=== PATIENT | male | born 1955 ===

== ENCOUNTER 2022-02-20 19:24 | Inpatient (IN) | payer OTHER, MEDICARE ==
[~2022-02-20] VITALS: Ht 185.4 cm; Wt 139.4 kg
--- NOTE | 2022-02-21 18:38 | NUR ---
ADMIT PT ARRIVED TO ICU 8 VIA EMS. REPORT RECEIVED FROM DARCI AT [facility]. PT IN 4 POINT RESTRAINTS UPON ARRIVAL, SNORING, NOT FOLLOWING COMMANDS, 15L NEBULIZER MASK ON PT. PT REMOVED FROM RESTRAINTS AND MOVED ONTO ICU BED. PT'S EMS LINENS WERE SATURATED WITH URINE. PT'S SKIN CLEANSED, HOOKED UP TO MONITORS. SPO2 100%. SWITCHED PT TO HI FLOW NC AT 10L AND SPO2 REMAINED 100% SO TITRATED DOWN TO 4L AND SPO2 98% SO NC CURRENTLY AT 2L AND SPO2 98%. PT STILL WON'T FOLLOW COMMANDS. HE OPENS EYES TO REPEATED VERBAL STIMULI. PT NOT ATTEMPTING TO GET OUT OF BED OR PULL AT THINGS CURRENTLY SO OUT OF RESTRAINTS AT THIS TIME. POWERGLIDE PLACED. NONE OF PT'S CURRENT IVS HAVE BLOOD RETURN. PT HAD 20G IN HIS ABDOMEN, 22 G IN HIS HAND THAT WAS LEAKING THAT WERE BOTH REMOVED. PT STILL HAS 22G IN HIS SHOULDER AND 20G IN HIS R FA. PT INCONTINENT OF URINE. ATTEMPTED CONDOM CATH BUT IT CAME OFF WITHIN 5 MINUTES OF PLACING IT. ATTENDS PLACED ON PT AFTER CLEANING MALINA AREA. BOTTOM IS BRIGHT RED IN THE FOLDS WITH SMALL OPEN AREA AT GLUTEAL CLEFT. PT ALSO HAS 3 SCATTERED SORES ON HIS ABD THAT ACTUALLY LOOK LIKE THEY MIGHT BE HEALING INCISION SITES FROM A LAPRASCOPIC PROCEDURE BUT PT IS UNABLE TO CONFIRM. DR. SHETH NOTIFIED OF PT'S ARRIVAL AND HOSPITALIST NOTIFIED WELL. AWAITING ORDERS. PT CURRENTLY SLEEPING ON HIS R SIDE.
--- NOTE | 2022-02-21 19:15 | NUR ---
ASSUMED CARE OF PT @1900. BEDSIDE REPORT. PT IS SLEEPING, DOES NOT ANSWER QUESTIONS OR FOLLOW COMMANDS. O2 2L VIA NC. RR <20, SPO2 >90%. CONTINUOUS CARDIAC MONITORING. PG IN KARISHMA PATENT W/SALINE LOCK.
[2022-02-21 20:00] LABS: Hematocrit 27.3 % (37.0-53.0); Hemoglobin 8.8 g/dL (13.5-17.5)
[2022-02-21 20:17] LABS: Bun/Creatinine Ratio 29.7 (12.0-20.0); Calcium, Blood 8.2 mg/dL (8.5-10.1); Creatinine, Blood 0.51 mg/dL (0.60-1.20); Potassium, Blood 3.9 mmol/L (3.5-5.5)
[2022-02-22 01:45] LABS: Hematocrit 26.8 % (37.0-53.0); Hemoglobin 8.6 g/dL (13.5-17.5)
[2022-02-22 03:57] LABS: Hematocrit 26.3 % (37.0-53.0); Hemoglobin 8.4 g/dL (13.5-17.5); Mean Corpuscular HGB 29.3 pg (26.0-34.0); Mean Corpuscular HGB Conc 31.9 g/dL (31.5-36.5); Mean Corpuscular Volume 92 fL (80-100); Mean Platelet Volume 10.5 fL (9.1-12.4); Platelet Count 90 K/mm3 (150-400); RDW Coefficient Variation 20.3 % (11.7-14.2); RDW Standard Deviation 67.4 fL (35.1-46.3); Red Blood Cell Count 2.87 M/mm3 (4.30-5.90); White Blood Cell Count 4.83 K/mm3 (4.00-11.30)
[2022-02-22 04:11] LABS: Bun/Creatinine Ratio 30.6 (12.0-20.0); Calcium, Blood 7.8 mg/dL (8.5-10.1); Creatinine, Blood 0.56 mg/dL (0.60-1.20); Magnesium, Blood 1.8 mg/dL (1.6-2.4); Potassium, Blood 3.9 mmol/L (3.5-5.5)
--- NOTE | 2022-02-22 05:44 | NUR ---
SUMMARY: NEURO/PSYCH/MOBILITY: PT REMAINED SEDATE AND MINIMALLY RESPONSIVE TO VERBAL STIMULI. WILL WITHDRAW FROM NOXIOUS STIMULI AND SAY "WHAT" TO HIS NAME. REPOSITIONS SELF AND MOVES ALL EXTREMETIES. PT TRYING TO GET OUT OF BED TOWARDS END OF SHIFT. CAMERA ON PT. RESP: PT ON BIPAP 14/8 W/5L O2. PT TOLERATES BIPAP AND BREATHING TX. RR <20, SPO2 >90%. PT WAS ON 2L O2 VIA NC AT BEGINNING OF SHIFT, SPO2 WOULD DIP INTO THE HIGH 80'S. LUNGS COARSE AND DIM ON R SIDE. CARDIAC: CONTINUOUS CARDIAC MONITORING. SR HR 80-90'S. SBP STABLE. MAP >65. GI: ABDOMINAL DISTENTION NOTED. PT DOES NOT REACT TO PALPATION. NO NAUSEA/VOMITING/BM THIS SHIFT. : PT INCONTINENT. ATTENDS IN PLACE. SKIN: ASSESSMENT REMAINS UNCHANGED. PICTURE OF COCCYX/GLUTEAL CLEFT IN CHART. IV ACCESS: PG KARISHMA, PG RODRÍGUEZ.
--- NOTE | 2022-02-22 08:00 | NUR ---
PT EXTREMELY AGIATATED, CONFUSED, THRASHING IN BED, PULLING ON LINES AND TUBES. PT UNABLE TO FOLLOW COMMANDS-CIWA 32 MED WITH ATIVAN 2 MG IVP-SEE EMAR. PT AUDIBLY WHEEZY- BIPAP REMOVED FOR ORAL CARE AND IT APPEARS THAT PT VOMITED WITHT HE BIPAP IN PLACE. SEVERAL LARGE CASTS REMOVED FROM PT MOUTH. LUNGS TIGHT AND WHEEZY-MOIST NON-PRODUCTIVE COUGH. SATS>90% ON 5 LITERS NASAL CANULA. PT TACHYPNEIC AND USING ACCESSORY MUSCLES TO BREATH. DR. QUINTANILLA AWARE OF RESPIRATORY DISTRESS-ABG, CXR,AND PULMONARY CONSULT PLACED. PT IS NPO-NO NOTED ACTIVE GIB. PT INCONTINENT OF URINE-COMPLETE BED BATH GIVEN AND LINEN CHANGE COMPLETED. SKIN BARRIER APPLIED TO REDDENED AREA TO COCCYX AND GLUTEAL FOLDS.
--- NOTE | 2022-02-22 08:30 | NUR ---
PT REMAINS RESTLESS AND AGITATED DESPITE MED WITH ATIVAN. SOFT WRIST RESTRAINS PLACED-PT MED WITH ATIVAN 2 MG IVP X 1. LUNGS REMAINS AUDIBLY WHEEZY-SATS>90% ON 5 LITERS NASAL CANULA.
[2022-02-22 08:59] LABS: PCO2 Arterial 40.5 mmHg (35-45); PO2 Arterial 69.6 mmHg (80-100); pH Blood Arterial 7.43 (7.35-7.45)
--- NOTE | 2022-02-22 09:30 | NUR ---
#14 FR PASCUAL PLACED. PT MED WITH ATIVAN 2 MG IVP PRIOR TO INSERTION. PT PULLING ON RESTRAINTS AND KICKING HIS LEGS OUT OF THE BED. PRECEDEX DRIP INITIATED. DR. BARGER AND DR. GODOY UPDATED.
--- NOTE | 2022-02-22 10:00 | NUR ---
DR. GONZALEZ GIVEN UPDATE. AWARE OF ELEVATED AMMONIA-NO NEW ORDERS AT THIS TIME.
[2022-02-22 10:44] LABS: Source, Urine Foley catheter
[2022-02-22 10:49] LABS: Appearance, Urine Clear (Clear); Bilirubin, Urine Neg (Neg); Blood, Urine 4+ (Neg); Color, Urine Yellow (P-Yellow); Glucose Qualitative, Urine Neg (Neg); Ketones, Urine Neg (Neg); Leukocyte Esterase, Urine Neg (Neg); Nitrite, Urine Neg (Neg); Protein, Urine Neg (Neg); Urobilinogen, Urine 2+ (Normal)
[2022-02-22 11:56] LABS: Bacteria Few /hpf; Red Blood Cells, Urine 25-50 /hpf (0-2); Squamous Epithelial Cells Few /hpf (Few); White Blood Cells, Urine 0-2 /hpf (0-5)
--- NOTE | 2022-02-22 12:00 | NUR ---
PT RESTING QUIETLY ON CPAP 8-FIO2 60%-PRECEDEX @ 1.4 MCG/KG/MIN. ECG SHOWS SR WITH RATE 70'S MAP TRENDING >65. LUNGS REMAIN WHEEZY, BUT LESS TACHYPNEIC, AND LESS ACCESSORY MUSCLE USE TO BREATH. CONTINUES NPO-NO ACTIVE GIB NOTED. REPEAT H&H @ 1400. PASCUAL DRAINING MODERATE AMOUNT OF DARK, DEDRICK URINE TO BSD.
[2022-02-22 14:26] LABS: Hematocrit 30.5 % (37.0-53.0); Hemoglobin 9.2 g/dL (13.5-17.5)
--- NOTE | 2022-02-22 14:30 | NUR ---
1000 CC OF GOLYTELY GIVEN. INCREASED RATE PLAN TO SCOPE @ 1700 AND STOOL IS STILL DARK, MAROON. HGG 6.9-DR. DUNN AWARE. LUNGS REMAIN COARSE AND WHEEZY-DIMINISHED T/O LEFT. PT USING ACCESSORY MUSCLES TO BREATH. SATS>90% ON 2 LITERS NASAL CANULA, BUT PT LABORING AT REST. ORDER GIVEN FOR IV STEROIDS-SEE EMAR.
[2022-02-22 14:32] LABS: Bun/Creatinine Ratio 31.1 (12.0-20.0); Calcium, Blood 7.9 mg/dL (8.5-10.1); Creatinine, Blood 0.52 mg/dL (0.60-1.20); Magnesium, Blood 1.8 mg/dL (1.6-2.4); Potassium, Blood 4.2 mmol/L (3.5-5.5)
--- NOTE | 2022-02-22 17:46 | NUR ---
PT RESTING QUIETLY ON CPAP 8-FIO2 30%. PRECEDEX DRIP @ 1.4 MC/KG/MIN. LUNGS REMAIN WHEEZY, BUT PT LESS TACHYPNEIC, WOB IMPROVED, AND SATS>90%. NO ACTIVE GIB- H&H STABLE. DR. SHETH UPDATED. PASCUAL DRAINING ADEQUATE AMOUNT OF DEDRICK URINE. PT COCCYX AND GLUTEAL FOLE SLIGHTLY RED, BUT IMPROVED FROM AM ASSESSMENT PT TURNED EVERY 2 HOURS.
--- NOTE | 2022-02-22 19:15 | NUR ---
ASSUMED CARE OF PT @1900. PT SEDATED ON PRECEDEX DRIP 1.4MCG/KG/HR. CPAP 8 AND 40%, RR >20, SPO2 >92%. PICC RODRÍGUEZ INFUSING W/DRESSING INTACT. TKO 10MLS/HR, PROTONIX 10MLS/HR, OCTREOTIDE 25MLS/HR. PG KARISHMA INFUSING. BILATERAL SOFT WRIST RESTRAINTS IN PLACE. PASCUAL CATH PATENT AND DRAINING TO GRAVITY.
[2022-02-23 03:43] LABS: BASOPHILS ABSOLUTE AUTO 0.01 K/mm3 (0.00-0.23); BASOPHILS PERCENT AUTO 0 % (0-2); EOSINOPHILS PERCENT AUTO 0 % (0-6); Hematocrit 30.2 % (37.0-53.0); Hemoglobin 9.5 g/dL (13.5-17.5); IMMATURE GRAN ABSOLUTE AUTO 0.01 K/mm3 (0.00-0.10); IMMATURE GRAN PERCENT AUTO 0 % (0-1); LYMPHOCYTES ABSOLUTE AUTO 0.19 K/mm3 (0.84-5.20); LYMPHOCYTES PERCENT AUTO 8 % (21-46); MONOCYTES ABSOLUTE AUTO 0.03 K/mm3 (0.16-1.47); MONOCYTES PERCENT AUTO 1 % (4-13); Mean Corpuscular HGB 29.2 pg (26.0-34.0); Mean Corpuscular HGB Conc 31.5 g/dL (31.5-36.5); Mean Corpuscular Volume 93 fL (80-100); Mean Platelet Volume 10.4 fL (9.1-12.4); NEUTROPHILS ABSOLUTE AUTO 2.26 K/mm3 (1.96-9.15); NEUTROPHILS PERCENT AUTO 90 % (41-73); Platelet Count 78 K/mm3 (150-400); RDW Coefficient Variation 19.5 % (11.7-14.2); RDW Standard Deviation 65.1 fL (35.1-46.3); Red Blood Cell Count 3.25 M/mm3 (4.30-5.90)
[2022-02-23 03:56] LABS: Bun/Creatinine Ratio 36.4 (12.0-20.0); Calcium, Blood 8.2 mg/dL (8.5-10.1); Creatinine, Blood 0.52 mg/dL (0.60-1.20); Magnesium, Blood 2.1 mg/dL (1.6-2.4); Phosphorus, Blood 3.8 mg/dL (2.5-4.9); Potassium, Blood 3.7 mmol/L (3.5-5.5)
--- NOTE | 2022-02-23 05:57 | NUR ---
SUMMARY: NO ACUTE EVENTS THROUGHOUT SHIFT. NEURO/PSYCH/MOBILITY: PT VERY SEDATED. TITRATED PRECEDEX DOWN THROUGH SHIFT. CURRENTLY AT 0.7MCG/KG/HR. PT NOT FOLLOWING DIRECTIONS, OPENING EYES, OR PULLING AWAY FROM NOXIOUS STIMULI. PT DID GRIMACE DURING 0400 ORAL CARE. PERRL. BSWR IN PLACE. RESP: WHEEZE/DIM R SIDE, DIM ON L. CPAP 8 AND 40%. RR <20, SPO2 >92%. ORAL CARE PERFORMED Q4HR. CARDIAC: CONTINUOUS CARDIAC MONITORING. SR HR 70-80'S, SBP STABLE, MAP >65. GENERALIZED EDEMA. GI: PT SHOWS NO SIGN OF NAUSEA. NO VOMITING OR BM THIS SHIFT. : PASCUAL CATH DRAINING CLOUDY URINE WITH MODERATE AMOUNTS OF SEDIMENT TO GRAVITY. 400MLS OUTPUT THIS SHIFT. SKIN: ASSESSMENT REMAINS UNCHANGED. MEPILEX APPLIED TO COCCYX AREA. PICC IN RODRÍGUEZ. PG IN KARISHMA.
--- NOTE | 2022-02-23 08:00 | NUR ---
PT RESTING QUIETLY ON CPAP WITH PRECEDEX @ 0.7 MCG/KG/MIN. PT GRIMACES AND PULLS ON RESTRAINTS WITH STIMULI/ORAL CARE. PT NOT FOLLOWING COMMANDS AT THIS TIME. ECG SHOWS SR WITH RATE 70'S. SBP TRENDING 110'S. GENERALIZED EDEMA NOTED. LUNGS DIMINISHED IN THE BASES. SATS>90% ON CPAP 8, FIO2 40%.NPO-NO NOTED GIB. ABDOMEN IS DISTENDED AND FIRM WITH HYPOACTIVE BT'S X 4. PASCUAL TO BSD WITH SMALL AMOUNT OF DEDRICK URINE WITH SEDIMENT. MEPILEX TO COCCYX/GLUTEAL FOLD-COCCYX AND GLUTEAL FOLD LESS RED THAN 02/22/22 ASSESSMENT.
--- NOTE | 2022-02-23 09:10 | NUR ---
PRECEDEX TITRATED DOWN TO 0.5 MCG/KG/MIN.
--- NOTE | 2022-02-23 10:00 | NUR ---
DR. BARGER IN TO SEE PT. FULL UPDATE GIVEN. PT GIVEN BREAK FROM CPAP AND PLACED ON 5 LITERS NASAL CANULA. EXTENSIVE ORAL CARE DONE. LARGE AMOUNT OF DRIED, BLOODY CASTS TO THE TONGUE AND THE ROOF OF THE MOUTH. PT IS A MOUTH BREATHER. PT TO REMAIN ON NASAL CANULA UNLESS SATS<90%
--- NOTE | 2022-02-23 12:00 | NUR ---
CIWA 9. PT SLEEPS WHEN NOT DISTURBED ON PRECEDEX @ 0.5 MCG/KG/MIN. PT AGITATED DURING ORAL CARE AND STARTED MOANING, THRASHING HIS HEAD ABOUT THE PILLOW, AND PULLING ON RESTRAINTS. ORAL CARE/SUCTION PRODUCTIVE OF MODERATE AMOUNT OF THICK, OLD BLOODY SECRETIONS. PT REMAINS NPO. ABDOMEN IS DISTENDED AND FIRM-STILL NO BM OR SIGNS OF GIB.D5 WITH 40 MEQ @ 125 CC/HR INITIATED TO INFUSE 1000ML ONLY. PT TO REMAIN ON NASAL CANULA TOLERATED-WILL RESUME CPAP IF SATS<90% OR RESPIRATORY DISTRESS. PASCUAL CONTINUES TO DRAIN DEDRICK URINE WITH SEDIMENT.
--- NOTE | 2022-02-23 14:30 | NUR ---
PT MOANING AND CRYING OUT. PT STATES "I NEED TO GET UP!" PT VERY RESTLESS, AGITATED, PULLING ON RESTRAINTS-CIWA 28. PT MED WITH ATIVAN 2 MG IVP X 1 AND PRECEDEX TITRATED UP TP 0.7 MCG/KG/MIN, CPAP RESUMED.
--- NOTE | 2022-02-23 16:00 | NUR ---
PT RESTING QUIETLY ON CPAP WITH PRECEDEX @ 1.4 MCG/KG/MIN. VS WDL. LUNGS REMAIN DIMINISHED AND AUDIBLY WHEEZY AT TIMES WHEN PT IS AGITATED. SATS>90% ON FIO2 40%. NO ACTIVE GIB. PASCUAL CONTINUES TO DRAIN DEDRICK URINE WITH SEDIMENT. NEW MEPILEX PLACED TO COCCYX/GLUTEAL FOLD-REDNESS TO COCCYX/GLUTEAL FOLDS IMPROVED FROM 02/22/22 ASSESSMENT.
[2022-02-24 04:01] LABS: Hematocrit 30.9 % (37.0-53.0); Hemoglobin 9.4 g/dL (13.5-17.5); Mean Corpuscular HGB 28.5 pg (26.0-34.0); Mean Corpuscular HGB Conc 30.4 g/dL (31.5-36.5); Mean Corpuscular Volume 94 fL (80-100); Mean Platelet Volume 11.4 fL (9.1-12.4); Platelet Count 75 K/mm3 (150-400); RDW Coefficient Variation 19.8 % (11.7-14.2); RDW Standard Deviation 66.4 fL (35.1-46.3)
[2022-02-24 04:20] LABS: Albumin, Blood 2.2 g/dL (3.4-5.0); Albumin/Globulin Ratio 0.5 (0.8-1.8); Bilirubin, Direct 0.9 mg/dL (0.0-0.3); Bilirubin, Indirect 0.3 mg/dL (0.1-0.7); Bilirubin, Total 1.2 mg/dL (0.1-1.0); Bun/Creatinine Ratio 44.5 (12.0-20.0); Calcium, Blood 7.5 mg/dL (8.5-10.1); Creatinine, Blood 0.43 mg/dL (0.60-1.20); Globulin, Blood 4.3 g/dL (2.2-4.0); Magnesium, Blood 2.2 mg/dL (1.6-2.4); Potassium, Blood 4.3 mmol/L (3.5-5.5); Total Protein, Blood 6.5 g/dL (6.4-8.2)
--- NOTE | 2022-02-24 06:31 | NUR ---
SHIFT SUMMARY: THIS AUTHOR ASSUMED PATIENT CARES FROM . GENERALLY PATIENT HAD UNEVENTFUL NIGHT. HE REQUIRED PRN ATIVAN X2 FOR AGITATION. INTERESTINGLY, PATIENT GOES FROM RASS -2 OR -3 ON PRECEDEX GTT TO A RASS OF +1 OR +2 WITHOUT ANY SEEMING STIMULI. AGITATED WHEN AWAKE; PULLS AT RESTRAINTS, THRASHES ABOUT. DURING A MOMENT OF LUCIDITY, PATIENT SAID TO AUTHOR THAT WHEN HE HAS PAIN AT HOME, HE "DRINKS." TRIED TO DO CIWA SCORING WHEN PATIENT AWAKE AND RESPONSIVE. ATTEMPTED TO MAKE PATIENT COMFORTABLE POSSIBLE. Q2HR TURNS DONE. REMAINS ON CPAP. LS CLEAR UPPER/DIMINISHED LOWER. SR WITH SOME HTN. NONPITTING BUE EDEMA IN HANDS. NO NEW SKIN CONCERNS. NO BM OVERNIGHT. PASCUAL OUTPUTTING WELL.
[2022-02-24 10:36] LABS: Base Excess Venous 3.6 mmol/L; Bicarbonate Venous 27.7 mmol/L (24.0-30.0); PCO2 Venous 34.2 mmHg (38-42)
--- NOTE | 2022-02-24 10:48 | NUR ---
ASSUMED CARE REPORT FROM TATIANA FRASER AT 0700. PT RESTING IN BED. INITIALLY UNRESPONSIVE TO PAINFUL STIMULI. PRECEDEX INFUSING AT 1.4 MCG/KG/HR. TITRATED OFF. NOW INTERMITTANTLY RESPONSIVE TO PAINFUL STIMULI. DOES NOT FOLLOW COMMANDS. WITHDRAWS INTERMITTANTLY TO PAINFUL STIMULI. CBG CHECKED. LUNGS c EXP WHEEZE. CPAP AT SHIFT CHANGED, CHANGED TO BIPAP 15/10/40%. TV MID 500'S. ABD OBESE, SOFT, NON TENDER. BT X 4. PASCUAL PATENT, DRAINING YELLOW URINE c SEDIMENT TO GRAVITY. PICC TO LUE, POWERGLIDE TO RUE, DRESSINGS C/D/I. PROTONIX AND OCTREOTIDE GTT INFUSING. WILL CONTINUE TO MONITOR.
--- NOTE | 2022-02-24 17:18 | NUR ---
SHIFT SUMMARY PRECEDEX TURNED OFF THIS SHIFT. PT ORIENTED TO SELF, KNOWS BIRTHDAY. GARBLED SPEECH. SLEEPS WHEN UNDISTURBED. FOLLOWS SIMPLE COMMANDS. MOVES ALL EXT. LUNGS DIM IN BASES, OCCASIONAL EXP WHEEZE. WORE BIPAP MOST OF SHIFT, 15/10/40%. CURRENTLY ON 7L VIA HFNC. SR, RATE 70'S. BP STABLE. DOBHOFF PLACED TO LEFT NARE, CURRENTLY AT 70 CM, PENDING RADIOLOGY READ. TOLERATED WELL. ORAL CARE q4 c BIPAP KIT. ABD OBESE, SOFT, NON TENDER. BT X 4. PASCUAL PATENT, DRAINED 750 ML YELLOW URINE c SEDIMENT TO GRAVITY. WILL CONTINUE TO MONITOR UNTIL REPORT TO ONCOMING NURSE.
[2022-02-25 04:31] LABS: BASOPHILS ABSOLUTE AUTO 0.01 K/mm3 (0.00-0.23); BASOPHILS PERCENT AUTO 0 % (0-2); EOSINOPHILS PERCENT AUTO 0 % (0-6); Hematocrit 30.6 % (37.0-53.0); Hemoglobin 9.3 g/dL (13.5-17.5); IMMATURE GRAN ABSOLUTE AUTO 0.03 K/mm3 (0.00-0.10); IMMATURE GRAN PERCENT AUTO 0 % (0-1); LYMPHOCYTES ABSOLUTE AUTO 0.22 K/mm3 (0.84-5.20); LYMPHOCYTES PERCENT AUTO 3 % (21-46); MONOCYTES ABSOLUTE AUTO 0.18 K/mm3 (0.16-1.47); MONOCYTES PERCENT AUTO 2 % (4-13); Mean Corpuscular HGB 28.6 pg (26.0-34.0); Mean Corpuscular HGB Conc 30.4 g/dL (31.5-36.5); Mean Corpuscular Volume 94 fL (80-100); NEUTROPHILS ABSOLUTE AUTO 7.31 K/mm3 (1.96-9.15); NEUTROPHILS PERCENT AUTO 94 % (41-73); Platelet Count 72 K/mm3 (150-400); RDW Coefficient Variation 20.5 % (11.7-14.2); RDW Standard Deviation 68.3 fL (35.1-46.3); Red Blood Cell Count 3.25 M/mm3 (4.30-5.90); White Blood Cell Count 7.75 K/mm3 (4.00-11.30)
[2022-02-25 05:00] LABS: Magnesium, Blood 2.2 mg/dL (1.6-2.4)
[2022-02-25 05:01] LABS: Albumin, Blood 2.3 g/dL (3.4-5.0); Anion Gap 6 mmol/L (6-16); Blood Urea Nitrogen 20 mg/dL (8-24); Bun/Creatinine Ratio 46.4 (12.0-20.0); CO2, Blood 26 mmol/L (21-32); Calcium, Blood 7.9 mg/dL (8.5-10.1); Chloride, Blood 114 mmol/L (98-108); Creatinine, Blood 0.43 mg/dL (0.60-1.20); Glomerular Filtration Rate 118 (60-); Glucose, Blood 118 mg/dL (70-99); Phosphorus, Blood 2.1 mg/dL (2.5-4.9); Potassium, Blood 3.5 mmol/L (3.5-5.5); Sodium, Blood 146 mmol/L (136-145)
--- NOTE | 2022-02-25 05:41 | NUR ---
SHIFT SUMMARY: PT ON HFNC AT THIS TIME. HE TRIED TO PULL LINES, GET OOB, REMOVE DOBHOFF TUBE AND TAKING OFF EKG LEADS SO BILATERAL WRIST RESTRAINTS WERE STARTED AFTER PRN ATIVAN 1MG DID NOT HELP RELAC PATIENT. PATIENT INCREASINGLY MORE AWAKE BUT SPEECH STLL INCHORENET AND INCOMPREHENSIBLE MAJORITY OF THE TIME. OCTREOTIDE INFUSING AT 25ML/HR TO R PICC. GRAVITY IN PLACE, DRAINING.
--- NOTE | 2022-02-25 08:06 | NUR ---
ASSUMED CARE BEDSIDE REPORT FROM CATIE FRASER AT 0700. PT RESTING IN BED. ALERT. RESPONSIVE TO NAME. ABLE TO STATE BIRTHDAY. GARBLED SPEECH, INCOHERANT. FOLLOWS SIMPLE DIRECTIONS. MAEW. RESTLESS IN BED. RESTRAINTS TO PROTECT LINES AND TUBES. LUNGS DIM IN BASES. 6L VIA HFNC. LOOSE COUGH. SR, RATE 90'S, BP STABLE. ABD OBESE, SOFT, NON TENDER. BT X 4. DOBHOFF TO LEFT NARE, 70 CM. PASCUAL PATENT, DRAINING YELLOW URINE c SEDIMENT TO GRAVITY. PICC TO LUE, POWERGLIDE TO RUE, DRESSINGS C/D/I. OCTREOTIDE GTT INFUSING. WILL CONTINUE TO MONITOR.
--- NOTE | 2022-02-25 17:39 | NUR ---
SHIFT SUMMARY PT A&OX 1. MENTATION IMPROVED. ABLE TO HAVE CONFUSED CONVERSATION. ASKS IF HE IS "GOING BACK TO [place]." THOUGHT HE WAS IN [place]. REORIENTED FREQUENTLY. OCCASIONALLY AGITATED. REDIRECTABLE. FOLLOWS SIMPLE COMMANDS. RESTRAINTS REMAIN IN PLACE D/T PT PULLING ON LINES. LUNGS DIM IN BASES, REMAINS ON 6L VIA HFNC. PLAN TO WEAR BIPAP AT NOC. SR ON MONITOR, RATE 90-100'S. BP STABLE. TUBE FEEDS STARTED THIS SHIFT, AT 25 ML/HR, GOAL 40 ML/HR. PASCUAL PATENT, DRAINED 1500 ML OUT THIS SHIFT. WILL CONTINUE TO MONITOR UNTIL REPORT TO ONCOMING NURSE.
[2022-02-26 04:25] LABS: BASOPHILS ABSOLUTE AUTO 0.01 K/mm3 (0.00-0.23); BASOPHILS PERCENT AUTO 0 % (0-2); EOSINOPHILS ABSOLUTE AUTO 0.01 K/mm3 (0.00-0.68); EOSINOPHILS PERCENT AUTO 0 % (0-6); Hematocrit 30.1 % (37.0-53.0); Hemoglobin 9.2 g/dL (13.5-17.5); IMMATURE GRAN ABSOLUTE AUTO 0.11 K/mm3 (0.00-0.10); IMMATURE GRAN PERCENT AUTO 1 % (0-1); LYMPHOCYTES ABSOLUTE AUTO 0.56 K/mm3 (0.84-5.20); LYMPHOCYTES PERCENT AUTO 5 % (21-46); MONOCYTES ABSOLUTE AUTO 0.94 K/mm3 (0.16-1.47); MONOCYTES PERCENT AUTO 8 % (4-13); Mean Corpuscular HGB 28.2 pg (26.0-34.0); Mean Corpuscular HGB Conc 30.6 g/dL (31.5-36.5); Mean Corpuscular Volume 92 fL (80-100); Mean Platelet Volume 10.5 fL (9.1-12.4); NEUTROPHILS ABSOLUTE AUTO 10.22 K/mm3 (1.96-9.15); NEUTROPHILS PERCENT AUTO 86 % (41-73); Platelet Count 102 K/mm3 (150-400); RDW Standard Deviation 70.2 fL (35.1-46.3); Red Blood Cell Count 3.26 M/mm3 (4.30-5.90); White Blood Cell Count 11.85 K/mm3 (4.00-11.30)
[2022-02-26 04:51] LABS: Albumin, Blood 2.5 g/dL (3.4-5.0); Anion Gap 6 mmol/L (6-16); Blood Urea Nitrogen 16 mg/dL (8-24); Bun/Creatinine Ratio 36.8 (12.0-20.0); CO2, Blood 28 mmol/L (21-32); Calcium, Blood 7.8 mg/dL (8.5-10.1); Chloride, Blood 110 mmol/L (98-108); Creatinine, Blood 0.44 mg/dL (0.60-1.20); Glomerular Filtration Rate 117 (60-); Glucose, Blood 122 mg/dL (70-99); Magnesium, Blood 2.1 mg/dL (1.6-2.4); Phosphorus, Blood 1.5 mg/dL (2.5-4.9); Potassium, Blood 3.6 mmol/L (3.5-5.5); Sodium, Blood 144 mmol/L (136-145)
--- NOTE | 2022-02-26 05:28 | NUR ---
SHIFT SUMMARY: PT STABLE, REMAINED ON BIPAP THROUGHOUT NIGHT. TUBE FEEDINGS AT GOAL RATE 45ML/HR. OCREOTIDE INFUSING @ 25ML/HR TO L PICC. RESTRAINTS REMOVED AND PATIENT FOLLOWING DIRECTIONS, ALTHOUGH STILL SOMEWHAT CONFUSED. URINE OUTPUT 1500ML. PASCUAL INTACT, DRAINING TO GRAVITY. PT ASKED FOR CELL PHONE. CELL PHONE AND GLASSES ON BEDSIDE TABLE.
--- NOTE | 2022-02-26 09:26 | NUR ---
ASSUMED CARE REPORT FROM CATIE FRASER AT 0700. PT RESTING IN BED. BIPAP IN PLACE, REMOVED, PLACED ON 5L VIA NC. PT A&OX 3. CAN RECALL CARE PLAN. FOLLOWS DIRECTIONS. NOT PULLING LINES OR TUBES. LUNGS DIM IN BASES. NON PRODUCTIVE COUGH. SPEAKING IN FULL SENTANCES. SR, RATE 90'S. BP STABLE. DOBHOFF TO LEFT NARE, 70 CM. TUBE FEEDS AT GOAL, 40 ML/HR. PASSED BEDSIDE SWALLOW. ADVANCED DIET. AT 10%. ABD OBESE, SOFT, NON TENDER. BT X 4. PASCUAL PATENT, DRAINING CLEAR YELLOW URINE TO GRAVITY. CHG BATH AND PT UP TO CHAIR. WILL CONTINUE TO MONITOR.
--- NOTE | 2022-02-26 17:31 | NUR ---
SHIFT SUMMARY PT RESTING IN BED. A&OX 3 FOR MOST OF SHIFT. PT C/O LOW BACK PAIN, INCREASINGLY ANXIOUS D/T BACK PAIN. MEDICATED c FENTANYL X 2 AND ATIVAN X1 c MINIMAL RESULTS. PT CONTINUES TO BE RESTLESS, HAS NOT SLEPT. INCREASED CONFUSION. ORIENTED TO SELF, FOLLOWS DIRECTIONS, THINKS HE IS AT [employer]. DR PERALTA CALLED FOR MELATONIN FOR NOC. LUNGS CLEAR, 4.5L VIA HFNC. PASSED BEDSIDE SWALLOW. DOBHOFF REMOVED. POOR APPETITE. PT STATES D/T TASTE OF FOOD. ATTEMPTED BM X 2 s RESULTS. BOWEL CARE ORDERED. PASCUAL PATENT, DRAINING 1500ML DEDRICK URINE OUT. WILL CONTINUE TO MONITOR UNTIL REPORT TO ONCOMING NURSE.
[2022-02-27 04:35] LABS: BASOPHILS PERCENT AUTO 0 % (0-2); EOSINOPHILS ABSOLUTE AUTO 0.18 K/mm3 (0.00-0.68); EOSINOPHILS PERCENT AUTO 2 % (0-6); Hematocrit 28.9 % (37.0-53.0); Hemoglobin 9.3 g/dL (13.5-17.5); IMMATURE GRAN ABSOLUTE AUTO 0.05 K/mm3 (0.00-0.10); IMMATURE GRAN PERCENT AUTO 1 % (0-1); LYMPHOCYTES ABSOLUTE AUTO 1.02 K/mm3 (0.84-5.20); LYMPHOCYTES PERCENT AUTO 12 % (21-46); MONOCYTES PERCENT AUTO 13 % (4-13); Mean Corpuscular HGB 29.2 pg (26.0-34.0); Mean Corpuscular HGB Conc 32.2 g/dL (31.5-36.5); Mean Corpuscular Volume 91 fL (80-100); Mean Platelet Volume 10.5 fL (9.1-12.4); NEUTROPHILS ABSOLUTE AUTO 5.95 K/mm3 (1.96-9.15); NEUTROPHILS PERCENT AUTO 72 % (41-73); Platelet Count 86 K/mm3 (150-400); RDW Coefficient Variation 20.6 % (11.7-14.2); RDW Standard Deviation 68.2 fL (35.1-46.3); Red Blood Cell Count 3.19 M/mm3 (4.30-5.90)
[2022-02-27 04:51] LABS: Albumin, Blood 2.6 g/dL (3.4-5.0); Anion Gap 4 mmol/L (6-16); Blood Urea Nitrogen 17 mg/dL (8-24); Bun/Creatinine Ratio 33.5 (12.0-20.0); CO2, Blood 29 mmol/L (21-32); Calcium, Blood 7.7 mg/dL (8.5-10.1); Chloride, Blood 107 mmol/L (98-108); Creatinine, Blood 0.51 mg/dL (0.60-1.20); Glomerular Filtration Rate 112 (60-); Glucose, Blood 90 mg/dL (70-99); Phosphorus, Blood 2.2 mg/dL (2.5-4.9); Potassium, Blood 3.5 mmol/L (3.5-5.5); Sodium, Blood 140 mmol/L (136-145)
--- NOTE | 2022-02-27 06:13 | NUR ---
SHIFT SUMMARY: PT. DID WELL OVERNIGHT, CONFUSION COMES AND GOES BUT PT. IS REDIRECTABLE. PT. IS ON CPAP AND IS SATTING ABOVE 95%. BP HAS BEEN WNL AND PT. IS IN NSR. PT. HAS NOT HAD A BM OVERNIGHT AND STILL HAS A PASCUAL THAT IS PATENT AND DRAINING WITH 1100 UOP OVERNIGHT. PT. HAS RECIEVED PAIN MEDICATION TWICE OVERNIGHT. PT. IS RESTING COMFORTABLY IN BED WITH CALL LIGHT WITHIN REACH.
--- NOTE | 2022-02-27 09:14 | NUR ---
Care Assumed 0700 A/O to being in [place] and states correct year. Unable to state correct location or event. Denies having low back pain currently. Appears to mumble and be confused at times. When asked if patient would like to eat breakfast, pt states, "what color is it?" After that states he would like eggs. LS clear, 4-5 via HFNC, SPO2 > 88%. BT active, states having nausea. Riojas patent, draining to gravity, yellow/clear output. VSS.
--- NOTE | 2022-02-27 12:05 | NUR ---
Update - Increased confusion Pt having periods of increasing confusion and returning to baseline after. Attempting to get out of bed to "go shower." Easily reoriented. LS clear. BT active. No BM. Remain on 4.5 HFNC, SPO2 > 90%. VSS. Dr. Ordaz in to see patient and PT/OT ordered. EGD to be completed later on today.
--- NOTE | 2022-02-27 16:18 | NUR ---
Update- OT/up in chair and having hallucinations OT completed and per therapist pt two person assist. CHG bath completed and pt in chair. Confused at times and attempting to get out of chair. Chair alarm on. Having hallucinations at times, seeing chihahuas on the floor and in lunch. Pt did not have lunch due to being NPO for EGD. Easily reoriented. VSS. On 6 L via NC to keep spo2 > 88%. SPO2 decreased to 84% during OT therapy.
--- NOTE | 2022-02-27 18:27 | NUR ---
Shift Summary Pt with increased confusion T/O the shift. Having hallucations and unable to state correct location/event at times. Easily reoriented. Pt medicated with Fentanyl X 2 with moderate results. Confusion appears to increase after being medicated. LS clear and on 4-6 L NC, SPO2 > 88%. Riojas patent and dranining to gravity. VSS. Will report to nightshift. See NN in regards to EGD.
--- NOTE | 2022-02-27 18:32 | NUR ---
EGD Patient made NPO after breatfast per nurse notify and report to EGD. Dr. Flaherty called in evening to recieve update on EGD. Per provide EGD can only be completed once patient is able to consent. Pt made aware and dinner provided. Dr. Flaherty to round on patient tonight.
--- NOTE | 2022-02-27 18:52 | NUR ---
Provider visit- Dr. Vimal Celis in to see patient. Pt appears to be A/O x 4 at this time. Able to state details of previous procedures. Dr. Celis states patient to have EGD completed tomorrow. Provider to put in orders.
--- NOTE | 2022-02-27 18:54 | NUR ---
Provider Call - Dr. Ordaz Provider called in regards to patients increased confusion post Fentanyl and Ativan. Both medications DC'd by provider and new orders recieved for Toradal 15 mg Q6PRN.
--- NOTE | 2022-02-27 21:00 | NUR ---
ASSUMED CARE. AOX3, ABLE TO MAKE NEEDS KNOWN. USES CALL LIGHT APPROPRIATLY. REPORTS 10/10 BACK PAIN. REPOSITIONED UP IN BED. MEDICATED WITH TORDOL. HE UNDERSTAND HE CAN ONLY HAVE CLEAR LIQUID TONIGHT AND NPO AGAIN TOMORROW. DENIES ANY CHEST PAIN. LD DIM WITH EXPIRTORY WHEEZES. SATS >90% ON 6L. PASCUAL PATENT. IV ANX COMPLETED. SANDOSTATIN GTT AT 25MCQ. MEDS GIVEN. WILL CONTINUE TO MONITOR.
--- NOTE | 2022-02-28 06:09 | NUR ---
SHIFT SUMMARY: PT IS AOX3, FORGETFUL AT TIMES BUT ABLE TO ANSWER ALL QUESTIONS APPROPRIATLY. LS CLEAR, OCCATIONAL EXP WHEEZES, NO COUGH NOTED. SATS MAINTAINED >90% ON 4.5-5L. BIPAP DURING SLEEPING. SINUS WITH RATE IN 70'S. DENIED ANY CHEST PAIN. CHRONIC BACK PAIN RELEIVED BY TORDOL, AND REPOSITIONING. SLEPT WELL T/O NIGHT, ABLE TO REPOSITION SELF IN BED. HAS BEEN ON CLEAR LIQUIDS T/O NIGHT, IS AWARE THAT HE IS TO BE NPO AFTER BREAKFAST FOR EDG AT 1600 TODAY. VS WNL, HAS REMAINED COOPERATIVE. NO OTHER CHANGES TO REPORT. CALL LIGHT IS IN REACH.
--- NOTE | 2022-02-28 07:40 | NUR ---
ASSUMED CARE: PT RESTING IN BED AT THIS TIME. 2L O2 VIA NC. NSR ON TELE. C/O PAIN TO BACK AND LEFT LEG. WILL DISCUSS FURTHER WITH
--- NOTE | 2022-02-28 08:30 | NUR ---
CALL TO DR CHAVEZ REGARDING PT'S PAIN. STATED THAT PT DID NOT RESPOND WELL TO NARCOTICS, GETTING HEAVY CONFUSION. STATED PT CAN HAVE TYLENOL. PT REFUSED TYLENOL BECAUSE OF CONCERN FOR CIRRHOSIS. PT STATED HE IS HAVING MUSCLE TWINGES TO LEFT LEG BUT CHRONIC BACK PAIN. WILL DISCUSS FURTHER WITH DR CHAVEZ
[2022-02-28 08:45] LABS: BASOPHILS ABSOLUTE AUTO 0.01 K/mm3 (0.00-0.23); BASOPHILS PERCENT AUTO 0 % (0-2); EOSINOPHILS ABSOLUTE AUTO 0.35 K/mm3 (0.00-0.68); EOSINOPHILS PERCENT AUTO 5 % (0-6); Hematocrit 27.7 % (37.0-53.0); IMMATURE GRAN ABSOLUTE AUTO 0.05 K/mm3 (0.00-0.10); IMMATURE GRAN PERCENT AUTO 1 % (0-1); LYMPHOCYTES ABSOLUTE AUTO 0.86 K/mm3 (0.84-5.20); LYMPHOCYTES PERCENT AUTO 13 % (21-46); MONOCYTES PERCENT AUTO 11 % (4-13); Mean Corpuscular HGB 29.1 pg (26.0-34.0); Mean Corpuscular HGB Conc 32.5 g/dL (31.5-36.5); Mean Corpuscular Volume 90 fL (80-100); Mean Platelet Volume 10.7 fL (9.1-12.4); NEUTROPHILS ABSOLUTE AUTO 4.57 K/mm3 (1.96-9.15); NEUTROPHILS PERCENT AUTO 70 % (41-73); Platelet Count 75 K/mm3 (150-400); RDW Coefficient Variation 19.9 % (11.7-14.2); Red Blood Cell Count 3.09 M/mm3 (4.30-5.90); White Blood Cell Count 6.54 K/mm3 (4.00-11.30)
--- NOTE | 2022-02-28 10:36 | NUR ---
DR HARRINGTONIN AWARE THAT PT REFUSED TYLENOL. DR STATES NO NARCOTICS AT THIS TIME DUE TO CONFUSION THAT PT EXPERIENCED FROM FENTANY[place]. DR WANTS PT TO BE ABLE TO CONSENT FOR GI SCOPE
--- NOTE | 2022-02-28 15:43 | NUR ---
PT TAKEN TO DAY SURGERY FOR PROCEDURE BY STAFF VIA [facility] ON TRANSPORT MONITOR
--- NOTE | 2022-02-28 15:56 | NUR ---
THE PATIENT WAS BROUGHT TO DAY SURGERY FOR HIS PROCEDURE
--- NOTE | 2022-02-28 16:01 | NUR ---
02/28/22 [address] ACUNA; SEE ANESTHESIA RECORDS.
--- NOTE | 2022-02-28 17:00 | NUR ---
PT RETURNED FROM EGD AWAKE AND TALKING TO STAFF. OR STAFF REPORTS OK TO EAT REGULAR DIET. HEAT TREATING FURNACE TENDER AWARE OF FINDINGS OF VARICES, ULCER AND PORTAL HYPERTENSION BUT NO INTERVENTION. PT EATING DIET, OCTREOTIDE RECONNECTED. NO ACUTE NEEDS AT THIS TIME.
--- NOTE | 2022-02-28 21:58 | NUR ---
ASSUMPTION OF CARE/ASSESSMENT ASSUMED CARE OF PT AT 1900. PT IS ALERT AND ORIENTED X 4; PT HUMOROUS AND COOPERATIVE WITH CARE. PT ON 2L VIA NC, LUNG SOUNDS ARE CLEAR T/O WITH DIM BASES; SPO2 94<, AND RR 12-14. PT ON CONTINUOUS CARDAIC MONITOR, IN SR WITH HR IN THE 70'S, SBP 120'S. PT HAS NO C/O SOB OR CHEST PAIN AT THIS TIME. PT HAS HYPERACTIVE BS IN ALL FOUR QUADRANTS AND NO C/O N/V; PT HAS OBESE, ROUND ABD WITH TENDERNESS IN RUQ R/T CIRRHOSIS PT STATES "THIS PAIN HAS BEEN THERE FOR A WHILE." PT TOLERATING LIQUID/FOOD. PASCUAL IN PLACE THAT IS DRAINING TO GRAVITY; URINE YELLOW. PT HAS WARM EXTREMITIES WITH PPP X 4, AND CAP REFIL < 3 SECONDS. PT USES CALL LIGHT APPROPRIATELY, BED LOWERED, WILL CONTINUE TO MONITOR.
[2022-03-01 05:10] LABS: BASOPHILS PERCENT AUTO 0 % (0-2); EOSINOPHILS ABSOLUTE AUTO 0.34 K/mm3 (0.00-0.68); EOSINOPHILS PERCENT AUTO 5 % (0-6); Hematocrit 27.9 % (37.0-53.0); Hemoglobin 9.1 g/dL (13.5-17.5); IMMATURE GRAN ABSOLUTE AUTO 0.04 K/mm3 (0.00-0.10); IMMATURE GRAN PERCENT AUTO 1 % (0-1); LYMPHOCYTES ABSOLUTE AUTO 0.74 K/mm3 (0.84-5.20); LYMPHOCYTES PERCENT AUTO 11 % (21-46); MONOCYTES ABSOLUTE AUTO 0.66 K/mm3 (0.16-1.47); MONOCYTES PERCENT AUTO 9 % (4-13); Mean Corpuscular HGB Conc 32.6 g/dL (31.5-36.5); Mean Corpuscular Volume 89 fL (80-100); Mean Platelet Volume 10.6 fL (9.1-12.4); NEUTROPHILS ABSOLUTE AUTO 5.29 K/mm3 (1.96-9.15); NEUTROPHILS PERCENT AUTO 75 % (41-73); Platelet Count 87 K/mm3 (150-400); RDW Coefficient Variation 19.7 % (11.7-14.2); RDW Standard Deviation 62.4 fL (35.1-46.3); Red Blood Cell Count 3.14 M/mm3 (4.30-5.90); White Blood Cell Count 7.07 K/mm3 (4.00-11.30)
[2022-03-01 05:44] LABS: Albumin, Blood 2.5 g/dL (3.4-5.0); Anion Gap 5 mmol/L (6-16); Blood Urea Nitrogen 11 mg/dL (8-24); Bun/Creatinine Ratio 19.3 (12.0-20.0); CO2, Blood 27 mmol/L (21-32); Calcium, Blood 7.9 mg/dL (8.5-10.1); Chloride, Blood 107 mmol/L (98-108); Creatinine, Blood 0.57 mg/dL (0.60-1.20); Glomerular Filtration Rate 108 (60-); Glucose, Blood 103 mg/dL (70-99); Magnesium, Blood 2.1 mg/dL (1.6-2.4); Phosphorus, Blood 3.5 mg/dL (2.5-4.9); Potassium, Blood 3.6 mmol/L (3.5-5.5); Sodium, Blood 139 mmol/L (136-145)
--- NOTE | 2022-03-01 06:45 | NUR ---
SHIFT SUMMARY: NO ACUTE CHANGES THIS SHIFT. PT SLEPT THROUGHOUT THE NIGHT. PT WAS ABLE TO AMBULATE UP TO RECLINER THIS MORNING WITH STANDBY ASSIST. PT TOLERATED THIS WELL. PT PLEASANT AND COMPLIANT WITH CARE THIS SHIFT. VSS THROUGHOUT THE SHIFT. USES LIGHT CALL APPROPRIATELY. WILL CONTINUE TO MONITOR UNTIL ONCOMING RN ARRIVES.
--- NOTE | 2022-03-01 09:42 | NUR ---
ASSUMED CARE REPORT FROM TREY FRASER AT 0700. PT SITTING IN RECLINER. USES CALL LIGHT APPROPRIATELY. FOLLOWS COMMANDS. C/O LOW BACK PAIN. 11/23, CHRONIC. LUNGS CLEAR, SPEAKING IN FULL SENTANCES. 3L VIA HFNC. STATES HE USES 3L AT HOME. SR, RATE 90'S. BP STABLE. ABD OBESE, SOFT, NON TENDER. BT X 4. TOLERATED BREAKFAST WELL. BOWEL CARE PROVIDED. PASCUAL PATENT, DRAINING CLEAR YELLOW URINE TO GRAVITY. PICC TO LUE, POWERGLIDE TO RUE. OCTREOTIDE GTT INFUSING. CALL LIGHT IN REACH. WILL CONTINUE TO MONITOR.
--- NOTE | 2022-03-01 10:20 | NUR ---
DR CHAVEZ ROUNDS PT TO BE D/C THIS AFTERNOON WHEN RIDE IS AVAILABLE.
[2022-03-01] MEDS ORDERED: DOCU100 PO (10:48)
[2022-03-01] MEDS ORDERED: PROP10 PO (10:50)
[2022-03-01] MEDS ORDERED: RIFA550T2 PO (10:50)
[2022-03-01] MEDS ORDERED: SENN187 PO (10:51)
[2022-03-01] MEDS ORDERED: COMBIVENT RESPIM4 G1 INH (10:52)
[2022-03-01] MEDS ORDERED: OMEP20ER PO (10:52)
--- NOTE | 2022-03-01 12:45 | NUR ---
EXTUBATION PT ON SPONT 11/18/30%. TV 350-400. RR 20'S. TOLERATING WELL. OPENS EYES SPONT. NOT FOLLOWING COMMANDS. PT EXTUBATED AT 1119. NOT REDIRECTABLE, PULLING ON LINES AND TUBES. WRIST RESTRAINTS REMAIN IN PLACE. PT APPEARS TO BE HAVING VISUAL HALLUCINATIONS, PICKING AT AIR. PRECEDEX STARTED. BED ALARM ON. WILL CONTINUE TO MONITOR.
--- NOTE | 2022-03-01 15:30 | NUR ---
DISCHARGE D/C INSTRUCTIONS REVIEWED c PT. VERBALIZED UNDERSTANDING. WILL MAKE F/U APPT c PCP AT [facility]. PICC AND POWERGLIDE REMOVED s COMPLICATIONS. VSS. WHEELED OUT TO CAR.
== END 2022-03-01 15:35 | disposition home or self-care (01) | DRG 441 ==
LOC: ICUW 19:24 → ICUE 02-21 17:46
PROVIDERS: Family Medicine; Internal Medicine; Internal Medicine Critical Care Medicine; ADMIT Internal Medicine
PROC: 02HV33Z Insertion of Infusion Device into Superior Vena Cava, Percutaneous Approach (ICD-10-PCS; principal; 2022-02-22)
PROC: HZ2ZZZZ Detoxification Services for Substance Abuse Treatment (ICD-10-PCS; 2022-02-22)
PROC: 5A09457 Assistance with Respiratory Ventilation, 24-96 Consecutive Hours, Continuous Positive Airway Pressure (ICD-10-PCS; 2022-02-26)
PROC: 0DJ08ZZ Inspection of Upper Intestinal Tract, Via Natural or Artificial Opening Endoscopic (ICD-10-PCS; 2022-02-28)
DX: K76.6 Portal hypertension (principal); G92.8 Other toxic encephalopathy; I85.11 Secondary esophageal varices with bleeding; J18.9 Pneumonia, unspecified organism; J96.01 Acute respiratory failure with hypoxia; J69.0 Pneumonitis due to inhalation of food and vomit; K22.11 Ulcer of esophagus with bleeding; F10.239 Alcohol dependence with withdrawal, unspecified; J44.0 Chronic obstructive pulmonary disease with (acute) lower respiratory infection; E87.0 Hyperosmolality and hypernatremia; D61.818 Other pancytopenia; D62 Acute posthemorrhagic anemia; Z78.1 Physical restraint status; K70.30 Alcoholic cirrhosis of liver without ascites; K31.89 Other diseases of stomach and duodenum; K21.9 Gastro-esophageal reflux disease without esophagitis; I10 Essential (primary) hypertension; G47.33 Obstructive sleep apnea (adult) (pediatric); E05.90 Thyrotoxicosis, unspecified without thyrotoxic crisis or storm; E88.09 Other disorders of plasma-protein metabolism, not elsewhere classified; E83.39 Other disorders of phosphorus metabolism; K72.90 Hepatic failure, unspecified without coma; M54.9 Dorsalgia, unspecified; F10.20 Alcohol dependence, uncomplicated; G89.29 Other chronic pain; T42.4X5A Adverse effect of benzodiazepines, initial encounter; T40.605A Adverse effect of unspecified narcotics, initial encounter; F41.8 Other specified anxiety disorders; E66.9 Obesity, unspecified; G25.81 Restless legs syndrome; F17.210 Nicotine dependence, cigarettes, uncomplicated; F43.10 Post-traumatic stress disorder, unspecified; Z86.16 Personal history of COVID-19; Z87.440 Personal history of urinary (tract) infections; Z98.890 Other specified postprocedural states; Z91.011 Allergy to milk products
CPT/HCPCS: 36415; 36569; 36600; 51702; 51703; 71045; 80048; 80069; 80076; 81001; 82140; 82330; 82607; 82746; 82803; 82947; 83735; 84100; 85014; 85018; 85025; 85027; 94640; 94660; 94664; 94762; 97110; 97116; 97162; 97166; 97530; 97535; A9270; C1751; C9113; J1885; J2060; J2354; J2543; J2704; J2920; J2930; J3010; J3411; J3480; J7030; J7050; J7060; J7070; J7120